=== PATIENT | female | born 1970 | race Caucasian/White ===

== ENCOUNTER 2024-06-04 07:59 | Emergency (ER) | payer OTHER ==
--- NOTE | 2024-06-04 09:09 | ED ---
General Adult HPI - General Chief complaint: Abdominal Pain Stated complaint: Abd pain,urogenital Time Seen by Provider: 06/04/24 08:10 Source: patient, RN notes reviewed Mode of arrival: ambulatory Limitations: no limitations - History of Present Illness Initial comments: 54-year-old female presents to the emergency department for evaluation of rectal pain. Patient states that this started about 3 days prior to arrival. He states it is worse when she sits on it. She believes that this is due to hemorrhoids. She denies any fever, chills. Admits to some diffuse abdominal pain. Reports that she has not been willing to eat or drink because she does not want to have a bowel movement because of the pain. She has not taken anything for pain at home. - Related Data Previous Rx's Medication Instructions Recorded HYDROcodone/APAP 10-325MG [Howe 1 tab PO Q6H PRN #12 tab 06/04/24 10-325] Allergies Allergy/AdvReac Type Severity Reaction Status Date / Time No Known Allergies Allergy Verified 06/04/24 08:08 Review of Systems ROS Statement: Those systems with pertinent positive or pertinent negative responses have been documented in the HPI. ROS Other: All systems not noted in ROS Statement are negative. Past Medical History Past Medical History: No Reported History History of Any Multi-Drug Resistant Organisms: None Reported Additional Past Surgical History / Comment(s): Retal colon cancer 1998 Past Psychological History: No Psychological Hx Reported Smoking Status: Current every day smoker Past Alcohol Use History: Occasional Past Drug Use History: None Reported General Exam Limitations: no limitations General appearance: alert, in distress (Due to pain) Head exam: Present: atraumatic, normocephalic, normal inspection Eye exam: Present: normal appearance, PERRL, EOMI. Absent: scleral icterus, conjunctival injection, periorbital swelling ENT exam: Present: normal exam, mucous membranes moist Respiratory exam: Present: normal lung sounds bilaterally. Absent: respiratory distress, wheezes, rales, rhonchi, stridor Cardiovascular Exam: Present: regular rate, normal rhythm, normal heart sounds. Absent: systolic murmur, diastolic murmur, rubs, gallop, clicks GI/Abdominal exam: Present: soft, normal bowel sounds. Absent: distended, tenderness, guarding, rebound, rigid Rectal exam: Present: hemorrhoids, tenderness, other (Patient unable to tolerate exam). Absent: normal inspection Extremities exam: Present: normal inspection, full ROM, normal capillary refill. Absent: tenderness, pedal edema, joint swelling, calf tenderness Neurological exam: Present: alert, oriented X3 Psychiatric exam: Present: normal affect, normal mood Skin exam: Present: warm, dry, intact, normal color. Absent: rash Course Vital Signs 06/04/24 06/04/24 06/04/24 08:04 09:52 12:54 Temperature 98.0 F 98.8 F Pulse Rate 82 70 Respiratory 18 97 H Rate Blood Pressure 167/79 135/69 119/54 O2 Sat by Pulse 98 98 Oximetry 06/04/24 14:18 Temperature 99.2 F Pulse Rate 78 Respiratory 16 Rate Blood Pressure 112/75 O2 Sat by Pulse 98 Oximetry Medical Decision Making - Medical Decision Making Was pt. sent in by a medical professional or institution (ARIEL Pinto, DRIVER EDUC[employer] ROAD INSTRUCTOR, urgent care, hospital, or jail...) When possible be specific @ -No Did you speak to anyone other than the patient for history (EMS, parent, family, police, friend...)? What history was obtained from this source @ -No Did you review nursing and triage notes (agree or disagree)? Why? @ -I reviewed and agree with nursing and triage notes Were old charts reviewed (outside hosp., previous admission, EMS record, old EKG, old radiological studies, urgent care reports/EKG's, jail records)? Report findings @ -No old charts were reviewed Differential Diagnosis (chest pain, altered mental status, abdominal pain women, abdominal pain men, vaginal bleeding, weakness, fever, dyspnea, syncope, headache, dizziness, GI bleed, back pain, seizure, CVA, palpatations, mental health, musculoskeletal)? @ -Differential Abdominal Pain Women: Appendicitis, Cholecystitis, diverticulosis, ischemic bowel, pancreatitis, hepatitis, UTI, gastroenteritis, AAA, incarcerated hernia, bowel obstruction, constipation, inflammatory bowel, hepatitis, peptic ulcer disease, splenic infarction, perforated viscus, vulvitis, ovarian torsion, PID, kidney stone, placenta abruption, this is not meant to be an all-inclusive list EKG interpreted by me (3pts min.). @ -None X-rays interpreted by me (1pt min.). @ -None done CT interpreted by me (1pt min.). @ -CT abdomen pelvis shows eccentric rectal wall thickening concerning for gastrointestinal adenocarcinoma, at least 1 lymph node in the meso rectal fascia and presacral lymph nodes which are suspicious, heterogenous thickened endometrium, indeterminate lesion in the liver, large right adnexal cyst measuring 5.2 cm U/S interpreted by me (1pt. min.). @ -None done What testing was considered but not performed or refused? (CT, X-rays, U/S, labs)? Why? @ -None What meds were considered but not given or refused? Why? @ -None Did you discuss the management of the patient with other professionals (professionals i.e. , PA, DRIVER EDUCATION ROAD INSTRUCTOR, lab, RT, psych nurse, clinical social work aide, ophthalmic technologist, teacher, payroll officer, manager rn case)? Give summary @ -Case discussed with Dr. Cordero General Surgery who believes the patient can be discharged with close follow up Case was discussed with Natalya Stanton, nurse practitioner with oncology who came to the emergency department to evaluate the patient Was smoking cessation discussed for >3mins.? @ -No Was critical care preformed (if so, how long)? @ -No Were there social determinants of health that impacted care today? How? (Homelessness, low income, unemployed, alcoholism, drug addiction, transportation, low edu. Level, literacy, decrease access to med. care, fdc, rehab)? @ -No Was there de-escalation of care discussed even if they declined (Discuss DNR or withdrawal of care, Hospice)? DNR status @ -No What co-morbidities impacted this encounter? (DM, HTN, Smoking, COPD, CAD, Cancer, CVA, ARF, Chemo, Hep., AIDS, mental health diagnosis, sleep apnea, morbid obesity)? @ -History of rectal cancer Was patient admitted / discharged? Hospital course, mention meds given and route, prescriptions, significant lab abnormalities, going to OR and other pert inent info. @ -Discharge patient presented to the emergency department for evaluation of rectal pain.Workup was formed as there was not any external factors that seemed to be causing the pain from my examination. labs reveal Leukocytosis at 15.7 which is likely reactive to the patients current condition. CMP shows no significant electrolyte disturbances, glucose 71 advised patient to eat. A CT of the abdomen pelvis was obtained revealing possible rectal wall thickening concerning for GI adenocarcinoma, possible lymph node involvement, heterogenous thickened endometrium, indeterminate lesion in the liver, right adnexal cyst measuring 5.2 cm. I discussed this case with Dr. Cordero who believes that the patient can be discharged with close follow-up. I also discussed the case with oncology, Heaven Stanton NP who came to the emergency department to evaluate the patient. Recommended coordination of follow-up to GI and PHOTO TECHNOLOGIST which she work on. Patient provided medication for pain control at home. Advised strict follow- up. She is understanding agreeable with discharge plan. Patient stable at time of discharge. Case discussed Dr. Ellis Undiagnosed new problem with uncertain prognosis? @ -No Drug Therapy requiring intensive monitoring for toxicity (Heparin, Nitro, Insulin, Cardizem)? @ -No Were any procedures done? @ -No Diagnosis/symptom? @ -Rectal pain, possible rectal adenocarcinoma, adnexal cyst Acute, or Chronic, or Acute on Chronic? @ -Acute Uncomplicated (without systemic symptoms) or Complicated (systemic symptoms)? @ -Complicated Side effects of treatment? @ -No Exacerbation, Progression, or Severe Exacerbation? @ -No Poses a threat to life or bodily function? How? (Chest pain, [place], [place], pneumonia, PE, COPD, DKA, ARF, appy, cholecystitis, CVA, Diverticulitis, Homicidal, Suicidal, threat to staff... and all critical care pts) @ -No - Lab Data Result diagrams: 06/04/24 09:22 06/04/24 09:22 Lab Results 06/04/24 06/04/24 Range/Units 09:22 09:22 WBC 15.7 H (3.8-10.6) k/uL RBC 4.62 (3.80-5.40) m/uL Hgb 14.7 (11.4-16.0) gm/dL Hct 45.8 (34.0-46.0) % MCV 99.1 (80.0-100.0) fL MCH 31.7 (25.0-35.0) pg MCHC 32.0 (31.0-37.0) g/dL RDW 11.5 (11.5-15.5) % Plt Count 460 H (150-450) k/uL MPV 7.1 Neutrophils % 81 % Lymphocytes % 11 % Monocytes % 5 % Eosinophils % 1 % Basophils % 1 % Neutrophils # 12.7 H (1.3-7.7) k/uL Lymphocytes # 1.7 (1.0-4.8) k/uL Monocytes # 0.8 (0-1.0) k/uL Eosinophils # 0.1 (0-0.7) k/uL Basophils # 0.1 (0-0.2) k/uL Sodium 137 (137-145) mmol/L Potassium 4.0 (3.5-5.1) mmol/L Chloride 102 (98-107) mmol/L Carbon Dioxide 23 (22-30) mmol/L Anion Gap 12 mmol/L BUN 10 (7-17) mg/dL Creatinine 0.63 (0.52-1.04) mg/dL Est GFR (CKD-EPI)AfAm >90 (>60 ml/min/1.73 sqM) Est GFR (CKD-EPI)NonAf >90 (>60 ml/min/1.73 sqM) Glucose 71 L (74-99) mg/dL Calcium 9.4 (8.4-10.2) mg/dL Total Bilirubin 0.8 (0.2-1.3) mg/dL AST 26 (14-36) U/L ALT 15 (4-34) U/L Alkaline Phosphatase 69 (38-126) U/L Total Protein 7.4 (6.3-8.2) g/dL Albumin 4.5 (3.5-5.0) g/dL Disposition Clinical Impression: Rectal pain Disposition: HOME SELF-CARE Condition: Stable Instructions (If sedation given, give patient instructions): Rectal Pain (ED) Additional Instructions: Please follow up with oncology and GI for further testing. Return to the emergency department for new or worsening symptoms. Prescriptions: HYDROcodone/APAP 10-325MG [Howe 10-325] 1 tab PO Q6H PRN #12 tab PRN Reason: pain Is patient prescribed a controlled substance at d/c from ED?: Yes When asked, does pt state using other controlled substances?: No If prescribed controlled substance>3 days was MAPS reviewed?: Prescribed <3 Days Referrals: Bibiana Vieira MD [Primary Care Provider] - 1-2 days
[2024-06-04 09:30] LABS: Basophils # (A) 0.1 k/uL (0-0.2); Basophils % (A) 1 %; Eosinophils # (A) 0.1 k/uL (0-0.7); Eosinophils % (A) 1 %; HCT 45.8 % (34.0-46.0); HGB 14.7 gm/dL (11.4-16.0); Lymphocytes # (A) 1.7 k/uL (1.0-4.8); Lymphocytes % (A) 11 %; MCH 31.7 pg (25.0-35.0); MCV 99.1 fL (80.0-100.0); Mean Platelet Volume 7.1; Monocytes # (A) 0.8 k/uL (0-1.0); Monocytes % (A) 5 %; Neutrophils # (A) 12.7 k/uL (1.3-7.7); Neutrophils % (A) 81 %; Platelet Count 460 k/uL (150-450); RBC 4.62 m/uL (3.80-5.40); RDW 11.5 % (11.5-15.5); WBC 15.7 k/uL (3.8-10.6)
[2024-06-04 09:38] LABS: ALT 15 U/L (4-34); AST 26 U/L (14-36); African American GFR (CKD) >90 (>60 ml/min/1.73 sqM); Albumin 4.5 g/dL (3.5-5.0); Alkaline Phosphatase 69 U/L (38-126); Anion Gap 12 mmol/L; Blood Urea Nitrogen 10 mg/dL (7-17); Calcium 9.4 mg/dL (8.4-10.2); Carbon Dioxide 23 mmol/L (22-30); Chloride 102 mmol/L (98-107); Glucose 71 mg/dL (74-99); Non-African American GFR(CKD) >90 (>60 ml/min/1.73 sqM); Sodium 137 mmol/L (137-145); Total Bilirubin 0.8 mg/dL (0.2-1.3); Total Protein 7.4 g/dL (6.3-8.2)
[2024-06-04] MEDS: KETOROLAC 15 MG/ML 1 ML VIAL IVP STA (09:39)
[2024-06-04] MEDS: LIDOCAINE-PRILOCAINE 2.5-2.5% CREAM 5 GM TUBE TOPICAL STA (09:44)
--- NOTE | 2024-06-04 11:04 | CT ---
EXAMINATION TYPE: CT abdomen pelvis w con DATE OF EXAM: 06/04/2024 10:47 AM COMPARISON: None CLINICAL INDICATION: Female, 54 years old with history of abd pain, rectal pain; TECHNIQUE: Axial CT abdomen pelvis w con;Sagittal and coronal reformats were created on a separate w orkstation. Contrast used:100 mL of Isovue 300 with IV Contrast, (none if empty) Oral contrast used: (none if empty) CT DLP: 548 mGycm, Automated exposure control for dose reduction was used. FINDINGS: LOWER CHEST: Unremarkable ABDOMEN LIVER: Indeterminate right hepatic dome segment 7 18 mm lesion with possible central dot of enhanceme nt. GALLBLADDER AND BILE DUCTS: Unremarkable. PANCREAS: Unremarkable. SPLEEN: Unremarkable. ADRENAL GLANDS: Unremarkable. KIDNEYS AND URETERS: No evidence of hydronephrosis or renal calculus. The ureters are unremarkable. PELVIS BLADDER: No evidence for wall thickening or mass given limitations of exam. REPRODUCTIVE: Right adnexal cyst measuring 52 x 45 mm. Heterogenous and thickened appearance of endom etrium. ABDOMEN & PELVIS STOMACH AND BOWEL: Small hiatal hernia, duodenum is unremarkable No evidence of bowel obstruction. Ec centric wall thickening of the rectal wall series 201 image 64 measuring up to 10 mm and extending at least 30 mm in length. Extending posteriorly to the left. PERITONEUM/RETROPERITONEUM: No evidence of pneumoperitoneum or free fluid. VASCULATURE: No evidence of aortic aneurysm. MUSCULOSKELETAL: No acute osseous abnormalities, no suspicious bony lesions are poorly visualized at this time. LYMPH NODES: Prominent mesorectal fascia lymph node posteriorly measuring 5 mm series 201 image 65.r there is a presacral lymph node which is suspicious measuring up to 7 mm series 201 image 52. SOFT TISSUE/ABDOMINAL WALL: Unremarkable IMPRESSION: 1. Eccentric rectal wall thickening concerning for gastrointestinal adenocarcinoma. There is at leas t one lymph node in the mesorectal fascia and presacral lymph nodes which are suspicious. Given histo ry of rectal cancer this is likely recurrence. Colonoscopy recommended. 2. Heterogenous thickened endometrium correlate for signs and symptoms of endometrial carcinoma. Dir ect visualization recommended. 3. Indeterminate lesion in the liver given other findings of possible malignancy this may represent metastatic disease. 4. Large right adnexal cyst measuring up to 5.2 cm which predisposes patient for ovarian torsion. [facility], Workstation: [email or web address], 06/04/2024 11:02 AM
[2024-06-04] MEDS: MORPHINE SULFATE 2 MG/ML SYRINGE IVP STA (11:40)
[2024-06-04] MEDS: ONDANSETRON 4 MG/2 ML VIAL IVP STA (11:41)
[2024-06-04] MEDS: MORPHINE SULFATE 4 MG/ML SYRINGE IVP STA (11:49)
[2024-06-04] MEDS: HYDROmorphone 0.5 MG/0.5 ML SYRINGE IVP STA (13:05)
[2024-06-04 14:20] VITALS: BP 112/75; PULSE 78; RESP 16; TEMP 99.2
--- NOTE | 2024-06-04 21:59 | P.CONS ---
History of Present Illness - Reason for Consult Consult date: 06/04/24 rectal pain, Hx rectal carcinoma Requesting physician: Mary Baer - Chief Complaint Rectal pain - History of Present Illness Patient is a very pleasant 54-year-old female that we have been asked to see in the emergency department as patient is presenting with significant rectal pain, some recent weight loss and a remote history of rectal cancer. CT without contrast of the abdomen and pelvis is reporting a an 18 mm lesion with a possible central dot of enhancement in the liver, a right adnexal cyst 52 x 45 mm, heterogenous and thickened appearance of the endometrium. Eccentric wall thickening of the rectum measuring up to 10 mm and extending at least 30 mm in length, extending posteriorly to the left. No pneumoperitoneum or free fluid. No suspicious bony lesions. 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 She is agreeable to do additional workup outpatient Patient reports a history of rectal cancer in 1998. This was treated with surgery alone. Patient admits that she did not continue to follow for very long but, she had no problems since. She has no other history of cancer. She reports that maybe for the last 2 years she intermittently noted some abdominal discomfort, was not always necessarily associated with food but, it was notable. She did increase her use of antacids and that seemed to help. She states that she does have a history of gastric ulcers. Over the last few months is when she noted rectal pain, became more frequent and more intense. She states that sometimes her bowel movements will not cause her any pain and other times they will cause significant pain. Sometimes the pain can keep her down for several days at a time. She is not noting any blood in the stool other than rarely some bright red blood, which she knows is from hemorrhoid. No significant change in caliber of stool that she can recall. She has maybe lost about 10 pounds in the last month or so because of fear of eating and having the pain with BM. She will get shaky, chilled and sweaty with the abdominal cramping. Review of Systems 10 point ROS is neg except as stated in HPI Past Medical History Past Medical History: No Reported History, Cancer History of Any Multi-Drug Resistant Organisms: None Reported Additional Past Surgical History / Comment(s): Retal colon cancer 1998 Past Psychological History: No Psychological Hx Reported Smoking Status: Current every day smoker Past Alcohol Use History: Occasional Past Drug Use History: None Reported Medications and Allergies Home Medications Medication Instructions Recorded Confirmed Type HYDROcodone/APAP 10-325MG [Ada 1 tab PO Q6H PRN #12 tab 06/04/24 Rx 10-325] Allergies Allergy/AdvReac Type Severity Reaction Status Date / Time No Known Allergies Allergy Verified 06/04/24 08:08 Physical Exam Vitals: Vital Signs Temp Pulse Resp BP Pulse Ox 06/04/24 14:18 99.2 F 78 16 112/75 98 06/04/24 12:54 98.8 F 70 97 H 119/54 98 06/04/24 09:52 135/69 06/04/24 08:04 98.0 F 82 18 167/79 98 Intake and Output 06/04/24 06/04/24 06/04/24 06:59 14:59 22:59 Other: Weight 52.163 kg - Constitutional General appearance: average body habitus, cooperative, mild distress - EENT Eyes: anicteric sclerae, EOMI ENT: hearing grossly normal - Neck Neck: no lymphadenopathy - Respiratory Respiratory: bilateral: CTA - Cardiovascular Rhythm: regular Heart sounds: normal: S1, S2 Abnormal Heart Sounds: no systolic murmur, no diastolic murmur, no rub, no S3 Gallop, no S4 Gallop, no click, no other leg Peripheral Edema: bilateral: None - Gastrointestinal large external hemorrhoid, no visible blood in the rectal area General gastrointestinal: no absent bowel sounds, no decreased bowel sounds, distended, no hepatomegaly, no hyperactive bowel sounds, normal bowel sounds, no organomegaly, no rigid, no scaphoid, soft, no splenomegaly, no tenderness, no umbilical hernia, no ventral hernia - Integumentary Integumentary: normal - Neurologic Neurologic: CNII-XII intact - Musculoskeletal Musculoskeletal: strength equal bilaterally - Psychiatric Psychiatric: A&O x's 3, appropriate affect, intact judgment & insight Results CBC & Chem 7: 06/04/24 09:22 06/04/24 09:22 Labs: Abnormal Lab Results - Last 24 Hours (Table) 06/04/24 06/04/24 Range/Units 09:22 09:22 WBC 15.7 H (3.8-10.6) k/uL Plt Count 460 H (150-450) k/uL Neutrophils # 12.7 H (1.3-7.7) k/uL Glucose 71 L (74-99) mg/dL CT scan - abdomen: report reviewed CT scan - pelvis: report reviewed Assessment and Plan (1) Rectal pain Status: Acute Priority: High Code(s): K62.89 - OTHER SPECIFIED DISEASES OF ANUS AND RECTUM SNOMED Code(s): 58583478 (2) Rectal carcinoma Status: Suspected Priority: Low Code(s): C20 - MALIGNANT NEOPLASM OF RECTUM SNOMED Code(s): 655267661 Plan: Rectal pain -Reviewed case at length with emergency department PA. -Reviewed concerning findings on fCT with patient and family. Recommending colonoscopy as well as SHOW DESIGN SUPERVISOR evaluation. Patient just established with a new PCP, she sees no other Physicians, she does not see any other specialist. -Contact information collected. Will make referral to GI for endoscopy [facility]. Will make referral to SHOW DESIGN SUPERVISOR for evaluation and possible biopsy. -Discussed with ER PA recommendations for pain medications for patient to have at home to control the pain. -Reviewed with patient and family at the bedside significant importance of taking medications to prevent narcotic induced constipation especially, in her current situation. Patient verbalized understanding. -Patient and family are in agreement with the plan of care. Will follow up in the next 1-2 days with pt
== END 2024-06-04 14:19 | disposition home or self-care (01) ==
LOC: EC 07:59
DX: K62.89 Other specified diseases of anus and rectum (principal); N83.291 Other ovarian cyst, right side; K76.9 Liver disease, unspecified; D72.829 Elevated white blood cell count, unspecified; Z85.048 Personal history of other malignant neoplasm of rectum, rectosigmoid junction, and anus; F17.200 Nicotine dependence, unspecified, uncomplicated
CPT/HCPCS: 36415; 80053; 85025; 74177; 99284; 96374; 96375 ×3; J2405; J2270; J1885; J1171; Q9967